=== PATIENT | male | born 1990 | race Caucasian/White ===

== ENCOUNTER 2020-03-22 11:36 | Emergency (ER) | payer OTHER ==
[~2020-03-22] VITALS: Ht 180.3 cm; Wt 127.0 kg
[2020-03-22] MEDS ORDERED: HYDROXYZINE PAM25 MG PO (14:00)
== END 2020-03-22 14:19 | disposition home or self-care (01) ==
LOC: ER 11:36
DX: L23.7 Allergic contact dermatitis due to plants, except food (principal)
CPT/HCPCS: 99283; J7512

== ENCOUNTER 2021-02-19 09:34 | Emergency (ER) | payer OTHER ==
[~2021-02-19 09:34] MED LIST: HYDROXYZINE PAM25 MG PO
[2021-02-19] MEDS ORDERED: DEXA2 PO (10:23)
[2021-02-19] MEDS ORDERED: BENZ100A PO (10:23)
== END 2021-02-19 10:35 | disposition home or self-care (01) ==
LOC: ER 09:34
DX: U07.1 COVID-19 (principal)
CPT/HCPCS: 99283